=== PATIENT | female | born 1970 | race Caucasian/White ===

== ENCOUNTER 2023-05-18 20:07 | Emergency (ER) | payer OTHER ==
[~2023-05-18] VITALS: Ht 160 cm; Wt 86.2 kg
[2023-05-18 20:25] VITALS: BP_SYST 131; PULSE 88; RESP 18; TEMP 98.4; O2SAT 97
[2023-05-18 21:59] LABS: BILIRUBIN,URINE NEGATIVE (NEGATIVE); BLOOD, URINE NEGATIVE (NEGATIVE); CLARITY/URINE CLEAR (CLEAR); COLOR,URINE YELLOW (YELLOW); GLUCOSE,URINE NEGATIVE (NEGATIVE); KETONES,URINE NEGATIVE (NEGATIVE); LEUKOCYTE ESTERASE ,URINE NEGATIVE (NEGATIVE); NITRITE, URINE NEGATIVE (NEGATIVE); PROTEIN URINE NEGATIVE (NEGATIVE); UROBILINOGEN,URINE 0.2 (0.2-1.0)
[2023-05-18 22:03] LABS: HCG,QUAL RESULT NEGATIVE (NEGATIVE)
--- NOTE | 2023-05-19 00:50 | NUR ---
Patient to ER bed 01 to gown for evaluation. Side rails up. Report given to BRYON FARLEY
--- NOTE | 2023-05-19 00:52 | NUR ---
ER at bedside examining patient.
--- NOTE | 2023-05-19 00:59 | NUR ---
PT C/O PELVIC PRESSURE. DENIES PAIN DURING URINATION, ABDOMINAL PAIN, DISHCHARGE AND SX. "IT FEELS BETTER WHEN I SHAKE MY LEGS." A/O X 4, AMBULATORY.
[2023-05-19] MEDS ORDERED: NAPR-688 PO ×3 (01:04→01:18)
[2023-05-19 01:15] VITALS: BP_SYST 163; PULSE 80; RESP 16; TEMP 97.6; O2SAT 98
--- NOTE | 2023-05-19 01:16 | NUR ---
Patient given written and verbal discharge instructions and verbalizes understanding. ER MD discussed with patient the results and treatment provided. Patient in stable condition. ID arm band removed. Rx of NAPROXIN given. Patient educated on pain management and to follow up with PMD. Pain Scale 0/10. Opportunity for questions provided and answered. Medication side effect fact sheet provided.
[2023-05-21] MEDS ORDERED: TRAM50TA2 PO (19:22)
== END 2023-05-19 01:15 | disposition home or self-care (01) ==
LOC: SED 20:07
DX: R10.30 Lower abdominal pain, unspecified (principal); Z79.899 Other long term (current) drug therapy
CPT/HCPCS: 81003; 84703; 99283

== ENCOUNTER 2024-07-02 00:10 | Emergency (ER) | payer OTHER ==
[~2024-07-02] VITALS: Ht 160 cm; Wt 77.1 kg
[~2024-07-02 00:10] MED LIST: NAPR-688 PO; TRAM50TA2 PO
[2024-07-02 00:33] VITALS: BP_SYST 130; PULSE 82; RESP 18; TEMP 97.6; O2SAT 97
[2024-07-02 01:15] LABS: BILIRUBIN,URINE NEGATIVE (NEGATIVE); BLOOD, URINE NEGATIVE (NEGATIVE); CLARITY/URINE CLEAR (CLEAR); COLOR,URINE YELLOW (YELLOW); GLUCOSE,URINE TRACE (NEGATIVE); KETONES,URINE NEGATIVE (NEGATIVE); LEUKOCYTE ESTERASE ,URINE TRACE (NEGATIVE); NITRITE, URINE POSITIVE (NEGATIVE); PROTEIN URINE TRACE (NEGATIVE)
[2024-07-02 01:28] LABS: BACTERIA,URINE RARE /HPF (None Seen); RBC,URINE 0-3 /HPF (0-3); WBC,URINE 0-3 /HPF (0-3)
[2024-07-02 02:20] LABS: BASOPHILS % (AUTO) 0.3 % (0.0-2.0); EOSINOPHILS # (AUTO) 0.2 K/uL (0.0-0.4); EOSINOPHILS % (AUTO) 3.2 % (0.0-4.0); HEMATOCRIT 40.2 % (36-48); HEMOGLOBIN 14.1 g/dL (12.0-16.0); LYMPHOCYTES # (AUTO) 2.6 K/uL (1.0-5.5); LYMPHOCYTES % (AUTO) 35.6 % (20.5-51.5); MEAN CORPUSCULAR HEMOGLOBIN 30 pg (27-31); MEAN CORPUSCULAR HGB CONC 35 % (32-36); MEAN CORPUSCULAR VOLUME 86 fL (79.0-98.0); MONOCYTES # (AUTO) 0.5 K/uL (0.0-1.0); MONOCYTES % (AUTO) 6.5 % (1.7-9.3); NEUTROPHILS % (AUTO) 54.4 % (40.0-70.0); PLATELET COUNT (AUTO) 384 K/uL (130-430); RED BLOOD CELL COUNT(AUTO) 4.69 MIL/uL (4.2-6.2); RED CELL DISTRIBUTION WIDTH 12.7 % (9.0-15.0); WHITE BLOOD COUNT (AUTO) 7.3 K/uL (4.8-10.8)
[2024-07-02 02:38] LABS: ALBUMIN 4.2 g/dL (3.4-4.8); CALCIUM 9.8 mg/dL (8.4-11.0); CREATININE 0.81 mg/dL (0.55-1.30); POTASSIUM 3.2 mmol/L (3.5-5.1); TOTAL BILIRUBIN 0.4 mg/dL (0.0-1.0); TOTAL PROTEIN, SERUM 8.1 g/dL (6.4-8.3)
[2024-07-02] MEDS: NACL 0.9% 1,000 ML IV ONE (02:56)
[2024-07-02] MEDS: ONDANSETRON HCL 4 MG/2 ML VIAL IVP ONE (02:58)
[2024-07-02] MEDS: MORPHINE 4 MG INJ. 4 MG/ML VIAL IVP ONE (03:02)
[2024-07-02 03:04] VITALS: TEMP 98.6
[2024-07-02 06:18] VITALS: BP_SYST 112; PULSE 71; RESP 18; O2SAT 96
== END 2024-07-02 05:10 | disposition home or self-care (01) ==
LOC: SED 00:10
DX: N39.0 Urinary tract infection, site not specified (principal); R10.31 Right lower quadrant pain; R11.0 Nausea
CPT/HCPCS: 99285; 74177; 96374; 76856; 96361; 96375; 80053; 81001; 83690; 85025; 87086; 36415; 81000; 81015; J2405; J2270; Q9967; J7030